=== PATIENT | male | born 1995 | race Caucasian/White ===

== ENCOUNTER → 2023-05-21 | Outpatient (CLI) | payer OTHER ==
[2023-05-21 15:24] LABS: Hepatitis B Surface Antigen Nonreactive
[2023-05-21 15:38] LABS: ALT 497 U/L (10-49); AST 324 U/L (14-35); Albumin 4.7 d/dL (3.8-4.9); Albumin/Globulin Ratio 1.74 Ratio (1.60-3.17); Alkaline Phosphatase 72 U/L (41-126); BUN/Creat Ratio 6.91 Ratio (12.00-20.00); Blood Urea Nitrogen 7.6 mg/dL (9.0-27.0); Calcium 9.7 mg/dL (8.7-10.3); Carbon Dioxide 25.5 mmol/L (21.6-31.8); Chloride 107 mmol/L (96-109); Globulin 2.7 d/dL (1.6-3.3); Glucose 98 mg/dL (70-110); Potassium 5.3 mmol/L (3.5-5.5); Sodium 144 mmol/L (135-145); Total Bilirubin 0.6 mg/dL (0.3-1.2); Total Protein 7.4 d/dL (6.2-8.2)
[2023-05-21 16:03] LABS: Basophils # (A) 0.04 X 10*3/uL (0.00-0.10); Basophils % (A) 0.6 %; Eosinophils % (A) 1.6 %; HCT 53.8 % (39.6-50.0); HGB 17.9 d/dL (13.0-17.0); Lymphocytes # (A) 1.35 X 10*3/uL (0.90-5.00); Lymphocytes % (A) 21.6 %; MCH 33.1 pg (27.0-32.0); MCHC 33.3 d/dL (32.0-37.0); MCV 99.4 FL (80.0-97.0); Mean Platelet Volume 11.7 FL (9.5-12.2); Monocytes # (A) 0.59 X 10*3/uL (0.20-1.00); Monocytes % (A) 9.5 %; NRBC Per 100 WBC 0 X 10*3/uL (0.00-0.01); Neutrophils # (A) 4.14 X 10*3/uL (1.80-7.70); Neutrophils % (A) 66.4 %; Platelet Count 171 X 10*3/uL (140-440); RBC 5.41 X 10*6/uL (4.40-5.60); WBC 6.24 X 10*3/uL (4.50-10.00)
[2023-05-25 14:06] LABS: HCV Qualitative Result DETECTED (Not detected); HCV Quant Log 5.18 (<1.08)
== END | disposition home or self-care (01) ==
LOC: LABWHC1 10:33
PROVIDERS: ATTEND Nurse Practitioner Family
DX: B18.2 Chronic viral hepatitis C (principal)
CPT/HCPCS: 36415; 80053; 82105; 85025; 87340; 87522; 87902